=== PATIENT | female | born 1995 | race Caucasian/White ===

== ENCOUNTER 2016-06-03 13:02 | Emergency (ER) | payer MEDICAID ==
[~2016-06-03] VITALS: Ht 154.9 cm; Wt 54.4 kg
[2016-06-03 13:23] VITALS: BP 99/58
--- NOTE | 2016-06-03 14:22 | NUR ---
Pt taken to bed 5.
--- NOTE | 2016-06-03 14:49 | NUR ---
20/F presents to ED for evaluation of rectal pain and rectal bleeding for the past 4 days. Pt reports having hemorrhoids. Pt c/o severe, burning pain to rectum, worsening with ambulation, 12/22 and reports having "some kinds of liquid coming out of my rectum that isn't blood." LBM last night at approximately 0300. Pt explains it being small, not normal for her. Patient also reports having dysuria and burning with urination which started yesterday. No active bleeding at this time. Patient is AOX4, ambulates with steady gait. VSS.
--- NOTE | 2016-06-03 15:05 | NUR ---
Patient being evaluated by physician activity assistant Jl at bedside.
[2016-06-03] MEDS ORDERED: KETOROLAC 60 MG/2 ML VIAL IM ONE (15:10)
[2016-06-03 16:49] VITALS: BP 103/49
--- NOTE | 2016-06-03 16:50 | NUR ---
Patient discharged with v/s stable. Written and verbal after care instructions given and explained. Patient alert, oriented and verbalized understanding of instructions. Ambulatory with steady gait. All questions addressed prior to discharge. ID band removed. Patient advised to follow up with PMD. Rx of ANUSOL SUPP, BACTRIM, TRAMADOL given. Patient educated on indication of medication including possible reaction and side effects. Opportunity to ask questions provided and answered.
--- NOTE | 2016-06-03 16:51 | NUR ---
Chart checked and completed. The patient's care was reviewed and supervised by Austin Romano RN.
== END 2016-06-03 16:35 | disposition home or self-care (01) ==
LOC: MED 13:02
DX: K64.9 Unspecified hemorrhoids (principal); R30.0 Dysuria
CPT/HCPCS: 81002; 81025; 96372; 99283; J1885

== ENCOUNTER 2018-08-14 21:08 | Emergency (ER) | payer MEDICAID ==
[~2018-08-14] VITALS: Ht 157.5 cm; Wt 50.3 kg
[2018-08-14 21:10] VITALS: BP 140/68
--- NOTE | 2018-08-14 21:10 | NUR ---
PT AMBULATED TO BED 7 WITH FAMILY/FRIEND
[2018-08-14] MEDS ORDERED: NACL 0.9% 1,000 ML IV ONE (21:20)
--- NOTE | 2018-08-14 21:30 | NUR ---
PT BIB S/O C/O N/V X2 DAYS. PT STATES EMESIS 4-5 TIMES TODAY, LAST ATE SMALL AMOUNT OF SOUP TODAY AT 1600. PT STATES SHE FEELS WEAKNESS IN HER LEGS, STATES 4/10 EPIGASTRIC PAIN. SKIN TURGOR NON-TENTING. DENIES VAGINAL BLEEDING OR DISCHARGE AT THIS TIME. PT ACTING APPRORPRIATLY. PMH: DENIES RX: DENIES
--- NOTE | 2018-08-14 21:31 | NUR ---
US AT BEDSIDE.
[2018-08-14 21:35] LABS: APPEARANCE,URINE SL CLOUDY (CLEAR); BILIRUBIN,URINE NEGATIVE (NEGATIVE); BLOOD, URINE NEGATIVE (NEGATIVE); COLOR,URINE YELLOW (YELLOW); LEUKOCYTE ESTERASE ,URINE 3+ (NEGATIVE); NITRITE, URINE NEGATIVE (NEGATIVE); UGLUCOSE NEGATIVE (NEGATIVE)
[2018-08-14 21:37] LABS: BASOPHILS # (AUTO) 0.1 K/uL (0.00-0.22); BASOPHILS % (AUTO) 0.4 % (0.0-2.0); EOSINOPHILS # (AUTO) 0.2 K/uL (0-0.4); EOSINOPHILS % (AUTO) 1.3 % (0.0-4.0); HEMATOCRIT 39.6 % (36-48); HEMOGLOBIN 13.3 g/dL (12.0-16.0); LYMPHOCYTES # (AUTO) 2.7 K/uL (2.5-16.5); LYMPHOCYTES % (AUTO) 21.2 % (20.5-51.1); MEAN CORPUSCULAR HEMOGLOBIN 31 pg (27-31); MEAN CORPUSCULAR HGB CONC 33 g/dL (33-37); MEAN CORPUSCULAR VOLUME 91.5 fL (80-94); MONOCYTES # (AUTO) 0.7 K/uL (0.8-1.0); MONOCYTES % (AUTO) 5.5 % (1.7-9.3); NEUTROPHILS # (AUTO) 9.3 K/uL (1.8-7.7); NEUTROPHILS % (AUTO) 71.6 % (42.2-75.2); PLATELET COUNT (AUTO) 237 K/uL (140-450); RED BLOOD CELL COUNT(AUTO) 4.33 MIL/uL (4.20-5.40); RED CELL DISTRIBUTION WIDTH 13.1 % (11.6-13.7)
[2018-08-14 21:47] LABS: RBC,URINE NONE SEEN /HPF (0-5)
[2018-08-14 21:47] LABS: CARBON DIOXIDE 28.4 mmol/L (21-32); CREATININE 0.7 mg/dL (0.6-1.3); POTASSIUM 3.4 mmol/L (3.5-5.1)
[2018-08-14] MEDS ORDERED: ONDANSETRON 4 MG/2 ML VIAL IVP ONE (21:50)
[2018-08-14 22:20] VITALS: BP 132/79
--- NOTE | 2018-08-14 22:20 | NUR ---
Patient discharged with v/s stable. Written and verbal after care instructions given and explained. Patient alert, oriented and verbalized understanding of instructions. Ambulatory with steady gait. All questions addressed prior to discharge. ID band removed. Patient advised to follow up with PMD. Rx of MACROBID CAPSULE 100MG AND ZOFRAN 4MG ODT given. Patient educated on indication of medication including possible reaction and side effects. Opportunity to ask questions provided and answered.
== END 2018-08-14 22:20 | disposition home or self-care (01) ==
LOC: MED 21:08
DX: O23.41 Unspecified infection of urinary tract in pregnancy, first trimester (principal); Z3A.01 Less than 8 weeks gestation of pregnancy
CPT/HCPCS: 36415; 76801; 80048; 81001; 81025; 84702; 85025; 86900; 86901; 87086; 96374; 99284; J2405; Q0092

== ENCOUNTER 2018-09-14 17:14 | Emergency (ER) | payer MEDICAID ==
[~2018-09-14] VITALS: Ht 157.5 cm; Wt 50.0 kg
[2018-09-14 17:23] VITALS: BP 112/68
[2018-09-14 18:24] LABS: BASOPHILS % (AUTO) 0.3 % (0.0-2.0); EOSINOPHILS # (AUTO) 0.1 K/uL (0-0.4); EOSINOPHILS % (AUTO) 0.7 % (0.0-4.0); HEMATOCRIT 40.9 % (36-48); HEMOGLOBIN 13.8 g/dL (12.0-16.0); LYMPHOCYTES # (AUTO) 2.1 K/uL (2.5-16.5); LYMPHOCYTES % (AUTO) 17.1 % (20.5-51.1); MEAN CORPUSCULAR HEMOGLOBIN 31 pg (27-31); MEAN CORPUSCULAR HGB CONC 34 g/dL (33-37); MEAN CORPUSCULAR VOLUME 91.9 fL (80-94); MONOCYTES # (AUTO) 0.5 K/uL (0.8-1.0); MONOCYTES % (AUTO) 4.4 % (1.7-9.3); NEUTROPHILS # (AUTO) 9.4 K/uL (1.8-7.7); NEUTROPHILS % (AUTO) 77.5 % (42.2-75.2); PLATELET COUNT (AUTO) 257 K/uL (140-450); RED BLOOD CELL COUNT(AUTO) 4.45 MIL/uL (4.20-5.40); RED CELL DISTRIBUTION WIDTH 13.3 % (11.6-13.7); WHITE BLOOD COUNT (AUTO) 12.1 K/uL (4.8-10.8)
[2018-09-14 18:32] LABS: ANION GAP 15.5 (8-16); CARBON DIOXIDE 25.2 mmol/L (21-32); CREATININE 0.7 mg/dL (0.6-1.3); POTASSIUM 3.7 mmol/L (3.5-5.1)
[2018-09-14 18:38] LABS: TOTAL BILIRUBIN 0.5 mg/dL (0.0-1.0)
--- NOTE | 2018-09-14 20:17 | NUR ---
PT TAKEN TO BED 7
--- NOTE | 2018-09-14 20:18 | NUR ---
PATIENT PRESENTS TO ED WITH C/O N/V FOR ALMOST 2 DAYS, AND SOB, AND HEADACHES FOR ABOUT ONE WEEK. PT 12 WEEKS , LMP 06/14/18, DEWAYNE 03/28/19, . PT DENIES PAIN AT THIS TIME. VSS; PATIENT POSITIONED FOR COMFORT; HOB ELEVATED; BEDRAILS UP X2; BED DOWN. ER MD MADE AWARE OF PT STATUS.
[2018-09-14] MEDS ORDERED: NACL 0.9% 1,000 ML IV ONE (20:40)
[2018-09-14] MEDS ORDERED: METOCLOPRAMIDE 10 MG/2 ML INJ VIAL IVP ONE (20:40)
[2018-09-14] MEDS ORDERED: diphenhydrAMINE 50 MG/ML VIAL IVP ONE (20:40)
[2018-09-14 21:47] LABS: APPEARANCE,URINE CLEAR (CLEAR); BILIRUBIN,URINE NEGATIVE (NEGATIVE); BLOOD, URINE NEGATIVE (NEGATIVE); COLOR,URINE YELLOW (YELLOW); LEUKOCYTE ESTERASE ,URINE 1+ (NEGATIVE); NITRITE, URINE NEGATIVE (NEGATIVE); PH,URINE 6.5 (5.0-9.0); UGLUCOSE NEGATIVE (NEGATIVE)
--- NOTE | 2018-09-14 21:52 | NUR ---
PT GIVEN WATER. PO CHALLENGE ORDERED PER DR. KIRKLAND.
[2018-09-14 22:06] LABS: RBC,URINE 0-5 /HPF (0-5)
[2018-09-14 22:48] VITALS: BP 101/48
== END 2018-09-14 22:48 | disposition home or self-care (01) ==
LOC: MED 17:14
DX: O23.41 Unspecified infection of urinary tract in pregnancy, first trimester (principal); O26.891 Other specified pregnancy related conditions, first trimester; R51 Headache; R06.02 Shortness of breath; Z3A.12 12 weeks gestation of pregnancy
CPT/HCPCS: 36415; 80053; 81001; 81025; 83690; 85025; 87086; 96361; 96374; 96375; 99283; J1200; J2765; J7030

== ENCOUNTER 2020-06-01 17:53 | Emergency (ER) | payer MEDICAID ==
--- NOTE | 2020-06-01 18:12 | NUR ---
LEFT WITHOUT BEING TRIAGED.
== END 2020-06-01 18:12 | disposition left against medical advice (07) ==
LOC: MED 17:53
DX: R20.0 Anesthesia of skin (principal); R05 Cough; Z53.21 Procedure and treatment not carried out due to patient leaving prior to being seen by health care provider